=== PATIENT | female | born 2000 | race African-American/Black ===

== ENCOUNTER 2019-08-09 18:00 | Emergency (ER) | payer OTHER ==
[2019-08-09 18:17] VITALS: BP 140/87
[2019-08-09] MEDS ORDERED: SULF1TAB24 PO (18:42)
--- NOTE | 2019-08-09 18:42 | PHYS DOC ---
Past History Past Medical History: No Pertinent History Past Surgical History: No Surgical History Alcohol Use: None Drug Use: None Adult General Chief Complaint Chief Complaint: ABSCESS HPI HPI 18-year-old female presents with abscess of the gluteal cleft. The patient was seen in another emergency room earlier today and they lanced and packed the wound. The patient comes are emergency room now because it is draining "a lot" and she is concerned about that. They did not tell her that was supposed to drain with the packing. Patient has not had a fever or chills. She is on Keflex 4 times a day. She just started this today. She does not believe that they did a wound culture. She has no other complaints at this time. The patient is supposed to travel back to [place] in a few days for vacation. Review of Systems Review of Systems Constitutional: Denies fever or chills [] Eyes: Denies change in visual acuity, redness, or eye pain [] HENT: Denies nasal congestion or sore throat [] Respiratory: Denies cough or shortness of breath [] Cardiovascular: No additional information not addressed in HPI [] GI: Denies abdominal pain, nausea, vomiting, bloody stools or diarrhea [] : Denies dysuria or hematuria [] Musculoskeletal: Denies back pain or joint pain [] Integument: Abscess of the buttocks, draining[] Neurologic: Denies headache, focal weakness or sensory changes [] Endocrine: Denies polyuria or polydipsia [] All other systems were reviewed and found to be within normal limits, except as documented in this note. Allergies Allergies Allergies Coded Allergies Type Severity Reaction Last Updated Verified No Known Drug Allergies 08/09/19 No Physical Exam Physical Exam Constitutional: Well developed, well nourished, no acute distress, non-toxic appearance. [] HENT: Normocephalic, atraumatic, bilateral external ears normal, oropharynx moist, no oral exudates, nose normal. [] Eyes: PERRLA, EOMI, conjunctiva normal, no discharge. [] Neck: Normal range of motion, no tenderness, supple, no stridor. [] Cardiovascular:Heart rate regular rhythm, no murmur [] Lungs & Thorax: Bilateral breath sounds clear to auscultation [] Abdomen: Bowel sounds normal, soft, no tenderness, no masses, no pulsatile masses. [] Skin: 3 cm x 1 cm abscess of the gluteal cleft with purulent drainage and obvious packing. Tender to palpation.[] Back: No tenderness, no CVA tenderness. [] Extremities: No tenderness, no cyanosis, no clubbing, ROM intact, no edema. [] Neurologic: Alert and oriented X 3, normal motor function, normal sensory functi on, no focal deficits noted. [] Psychologic: Affect normal, judgement normal, mood normal. [] Current Patient Data Vital Signs Vital Signs Date Time Temp Pulse Resp B/P (MAP) Pulse Ox O2 Delivery O2 Flow Rate FiO2 08/09/19 18:17 98.3 118 18 98 Room Air EKG EKG [] Radiology/Procedures Radiology/Procedures [] Course & Med Decision Making Course & Med Decision Making Pertinent Labs and Imaging studies reviewed. (See chart for details) I did do a wound culture of the patient's purulent fluid. Given that this is a moderate size abscess with purulent drainage, I will add Bactrim to the patient's Keflex for better staph coverage. Patient is stable for discharge at this time. [] Dragon Disclaimer Dragon Disclaimer This electronic medical record was generated, in whole or in part, using a voice recognition dictation system. Departure Departure: Impression: Primary Impression: Cellulitis and abscess of buttock Disposition: 01 HOME, SELF-CARE Condition: STABLE Referrals: PCP,LORELEI (PCP) Patient Instructions: Abscess, [id number] Scripts Sulfamethoxazole/Trimethoprim (BACTRIM DS TABLET) 1 Each Tablet 1 TAB PO BID for abscess for 7 Days, #14 TAB 0 Refills Prov: DONNELL CERDA DO 08/09/19 DONNELL CERDA DO Aug 09, 2019 18:42
== END 2019-08-09 18:54 | disposition home or self-care (01) ==
LOC: ER 18:00
DX: L02.31 Cutaneous abscess of buttock (principal); L03.317 Cellulitis of buttock
CPT/HCPCS: 87070; 99283